=== PATIENT | male | born 1990 | race Two or more races ===

== ENCOUNTER 2024-10-10 16:53 | Emergency (ER) | payer MEDICAID, SELFPAY ==
[2024-10-10 16:54] VITALS: BMI 27.0
--- NOTE | 2024-10-10 17:03 | EKG_ITS ---
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
[2024-10-10 17:06] VITALS: BP 140/86; PULSE 122; RESP 18; TEMP 36.6; O2SAT 98
--- NOTE | 2024-10-10 17:22 | XR_ITS ---
Examination: PA lateral chest 2 views TECHNIQUE: Upright PA lateral chest 2 views Date and time: October 10, 2024 1839 hours INDICATIONS: Chest pain today. FINDINGS: Normal heart size. Lungs are clear. The osseous structures are intact IMPRESSION: No active disease
--- NOTE | 2024-10-10 17:23 | PD.EDRME ---
Rapid Medical Screening Exam RME Arrival date/time: 10/10/24 16:53 34-year-old male who presents to the emergency department today complaints of nausea vomiting and anxiety patient reports that he has been drinking since Wednesday patient reports drinking 7 tall cans today Chief Complaint: Alcohol Time Seen by Provider: 10/10/24 17:20 Vital signs: Vital Signs Temperature 97.9 F 10/10/24 17:06 Pulse Rate 122 H 10/10/24 17:06 Respiratory Rate 18 10/10/24 17:06 Blood Pressure 140/86 H 10/10/24 17:06 Pulse Oximetry (%) 98 10/10/24 17:06 Oxygen Delivery Method Room Air 10/10/24 17:06
[2024-10-10 17:58] LABS: Basophils # (Auto) 0.1 Thou/mm3 (0.0-0.2); Basophils % (Auto) 1 % (0-2.5); Eosinophils % (Auto) 0 % (0-10); Hematocrit 48.6 % (41.0-53.0); Hemoglobin 17.8 g/dL (13.5-16.0); Immature Granulocytes % (Auto) 0 % (0-0); Immature Granulocytes Auto 0.04 Thou/mm3 (0.00-0.00); Lymphocytes # (Auto) 2.8 Thou/mm3 (1.0-4.8); Lymphocytes % (Auto) 25 % (10-50); Mean Corpuscular HGB Conc 36.6 g/dl (31.0-37.0); Mean Corpuscular Hemoglobin 29.1 pg (25.0-35.0); Mean Corpuscular Volume 79 fL (80-100); Monocytes # (Auto) 0.7 Thou/mm3 (0.0-0.8); Monocytes % (Auto) 7 % (0-12); Neutrophils # (Auto) 7.8 Thou/mm3 (1.8-7.7); Neutrophils % (Auto) 68 % (37-80); Nucleated Red Blood Cell % 0 /100 WBC (0); Platelet Count 314 Thou/mm3 (140-440); RDW Standard Deviation 37.9 fL (35.1-43.9); Red Blood Count 6.12 Miln/mm3 (4.50-5.90); White Blood Count 11.5 Thou/mm3 (3.8-10.6)
[2024-10-10] MEDS: SODIUM CHLORIDE 0.9% 1000 ML 1,000 ML 999 ML IV ×2 (18:17→19:30)
--- NOTE | 2024-10-10 18:25 | EDNOTE_ITS ---
ED Alcohol RME/HPI General Chief Complaint: Alcohol Stated Complaint: NAUSEA, VOMITING, FEELS ANXIOUS Time Seen by Provider: 10/10/24 17:20 Source: patient Arrival date/time: 10/10/24 16:53 34-year-old male with no known medical history presents to the emergency room with a chief complaint of nausea, vomiting, anxiety x 4 days. at bedside states the patient has been drinking for the last 4 days. Mode of arrival: ambulatory Limitations: no limitations RME / HPI RME / HPI narrative: 10/10/24 16:53 34-year-old male who presents to the emergency department today complaints of nausea vomiting and anxiety patient reports that he has been drinking since Wednesday patient reports drinking 7 tall cans today Related Data Allergies Allergy/AdvReac Type Severity Reaction Status Date / Time No Known Allergies Allergy Verified 10/10/24 16:59 Review of Systems Review of Systems Systems Reviewed: All systems reviewed, normal except as documented Constitutional Constitutional: Reports system reviewed and no additional complaints, except as documented, Denies fatigue, Denies fever(s), Denies headache(s) and Denies weakness Eyes Eyes: Reports system reviewed and no additional complaints, except as documented, Denies blurry vision and Denies change in vision ENT Ears, Nose, Mouth, and Throat: Reports system reviewed and no additional complaints, except as documented, Denies otalgia, Denies headache(s), Denies nasal congestion, Denies throat swelling and Denies vertigo Cardiovascular Cardiovascular: Reports system reviewed and no additional complaints, except as documented, Denies chest pain, Denies dyspnea and Denies dyspnea on exertion Respiratory Respiratory: Reports system reviewed and no additional complaints, except as documented, Denies chest congestion, Denies cough, Denies dyspnea, Denies dyspnea on exertion and Denies wheezing Gastrointestinal Gastrointestinal: Reports system reviewed and no additional complaints, except as documented, Reports abdominal pain, Reports cramping, Reports nausea and Reports vomiting Genitourinary Genitourinary: Reports system reviewed and no additional complaints, except as documented, Denies dysuria and Denies hematuria Musculoskeletal Musculoskeletal: Reports system reviewed and no additional complaints, except as documented and Denies back pain Integumentary/Breasts Skin/Breast: Reports system reviewed and no additional complaints, except as documented and Denies wounds Neurologic Neurologic: Reports system reviewed and no additional complaints, except as docu mented, Denies confusion, Denies headache(s), Denies lack of coordination, Denies vertigo and Denies weakness Psychiatric Psychiatric: Reports system reviewed and no additional complaints, except as documented, Denies anxiety, Denies confusion, Denies depression, Denies paranoia, Denies suicidal ideation and Denies tactile hallucinations Endocrine Endocrine: Reports system reviewed and no additional complaints, except as documented and Denies fatigue Hematologic/Lymphatic Hematologic/Lymphatic: Reports system reviewed and no additional complaints, except as documented and Denies lymphadenopathy Allergic/Immunologic Allergic/Immunologic: Reports system reviewed and no additional complaints, except as documented, Denies throat swelling, Denies urticaria and Denies wheezing Past Medical History Past Medical History NEUROLOGIC: Negative Cerebrovascular Accident or Alzheimer's Disease CARDIAC: Negative Myocardial Infarction, Angina or Congestive Heart Failure RESPIRATORY: Negative Chronic Obstructive Pulmonary Disease (COPD) or Emphysema GASTROINTESTINAL: Negative Liver Cancer or Pancreatic Cancer GENITOURINARY: Negative Renal Disease MUSCULOSKELETAL: Negative Muscular Dystrophy or Bone Cancer ENT: Negative Cataracts ENDOCRINE: Negative Endocrine Disorders, Diabetes Mellitus Type 1 or Diabetes Mellitus Type 2 PSYCHO/SOCIAL: Negative Psychiatric Problems OTHER HISTORY: Negative Down Syndrome or Developmental Delay Social History SMOKING STATUS: Never smoker ED Exam General Limitations: Present no limitations General appearance: Present alert and in no apparent distress Head Head exam: Present atraumatic Eye Eye exam: Present normal appearance, PERRL and EOMI ENT ENT exam: Present normal exam, normal oropharynx and mucous membranes moist Neck Neck exam: Present normal inspection, full ROM and trachea midline Chest Chest inspection: Present normal inspection and symmetric chest wall rise Respiratory Respiratory exam: Present normal lung sounds bilaterally Cardiovascular Cardiovascular exam: Present regular rate, normal rhythm and normal heart sounds Abdominal Exam Abdominal exam: Present soft, tenderness and normal bowel sounds; Absent distention, guarding, rebound, rigidity, Foreman's sign or tenderness at McBurney's Point Abdominal tenderness: Present epigastrium and mild Extremities Exam Extremities exam: Present normal inspection and full ROM Back Exam Back exam: Present normal inspection and full ROM Neurological Exam Neurological exam: Present alert, oriented X3 and CN II-XII intact Psychiatric Psychiatric exam: Present normal affect and normal mood Skin Skin exam: Present warm, dry, intact and normal color Course Quality Measures none Orders Category Date Time Status EKG (ED ONLY) *Do not use* NOW Care 10/10/24 17:03 Completed Insert IV NOW Care 10/10/24 17:22 Completed Neuro Check Q30MIN Care 10/11/24 03:[address] head/brain wo con Stat Exams 10/10/24 22:11 Completed EKG (ED Only) Stat Exams 10/10/24 17:03 Draft US gall bladder Stat Exams 10/10/24 19:16 Completed XR chest 2V Stat Exams 10/10/24 17:22 Completed Acetaminophen Stat Lab 10/11/24 04:25 Completed Alcohol, Blood Medical Stat Lab 10/10/24 17:38 Completed CBC Stat Lab 10/10/24 17:38 Completed Comprehensive Metabolic Panel Stat Lab 10/10/24 17:38 Completed Drug Screen,Urine Stat Lab 10/10/24 17:29 Completed Fresh Frozen Plasma Stat Lab 10/10/24 22:29 Results HSV1 IgG Type Specific Ab* Stat Lab 10/11/24 Received HSV2 IgG Type Specific Ab* Stat Lab 10/11/24 Received Hepatitis Acute Panel Stat Lab 10/10/24 17:38 Completed INR [Prothrombin Time with INR] Stat Lab 10/11/24 04:25 Completed Lipase Stat Lab 10/10/24 17:38 Completed Magnesium Stat Lab 10/10/24 17:38 Completed PT [Prothrombin Time with INR] Stat Lab 10/10/24 20:33 Completed PTT [Partial Thromboplastin Time] Stat Lab 10/10/24 20:33 Completed Troponin I Stat Lab 10/10/24 17:38 Completed Type and Screen Stat Lab 10/10/24 22:29 Results ALT Order Med 10/11/24 06:00 Discontinued Acyclovir Inj [Zovirax Inj] 800 mg Med 10/11/24 06:00 Discontinued Sodium Chloride 0.9% [Ns] 100 ml IV Q8HR Acyclovir Inj [Zovirax Inj] 800 mg Med 10/11/24 06:00 Discontinued Sodium Chloride 0.9% [Ns] 100 ml IV X1 Folic Acid Inj Med 10/10/24 19:16 Discontinued 1 mg IVP X1 ONE LORazepam [Ativan Inj] Med 10/10/24 19:41 Discontinued 1 mg IVP X1 ONE Morphine Inj Med 10/11/24 07:41 Discontinued 4 mg IVP X1 ONE Phytonadione Inj [Vitamin K Inj] Med 10/10/24 22:11 Discontinued 10 mg SC X1 ONE Sodium Chloride 0.9% 1000 ml [Ns] 1,000 ml Med 10/10/24 17:22 Discontinued IV 999 mls/hr Sodium Chloride 0.9% 1000 ml [Ns] 1,000 ml Med 10/10/24 19:17 Discontinued IV 999 mls/hr Thiamine Inj [Vitamin B-1 Inj] Med 10/10/24 19:16 Discontinued 100 mg IVP X1 ONE cefTRIAXone/D5w 1gm IV premix [Rocephin/D5w 1gm IV Med 10/11/24 03:46 Discontinued premix] 1 gm in 50 ml IV X1 Vital Signs Vital signs: Vital Signs Temperature 97.9 F 10/10/24 17:06 Pulse Rate 122 H 10/10/24 17:06 Respiratory Rate 18 10/10/24 17:06 Blood Pressure 140/86 H 10/10/24 17:06 Pulse Oximetry (%) 98 10/10/24 17:06 Oxygen Delivery Method Room Air 10/10/24 17:06 O2 saturation 90% within normal limits Discharge Plan Plan Patient Disposition: [facility] Facility Pt Being Transferred to: [place] Service Needed for Transfer: Critical Care Discharge Disposition comment: Acute Hepatic Failure Patient condition on transfer: Stable Prescriptions/Referrals Referrals: No Primary/Family,Physician [Primary Care Provider] - In 1 week Problem List Clinical Impression: Alcoholic intoxication Patient/Caregiver Discharge Instructions Print Language: Kittitian Stand Alone Forms: [employer] Award Info., Patient Portal Info Letter Alcohol MDM Narrative MDM Narrative: 34-year-old male with no known medical history presents to the emergency room with a chief complaint of nausea, vomiting, anxiety x 4 days. at bedside states the patient has been drinking for the last 4 days. Patient is hemodynamically stable no apparent distress Physical examination shows some 4 out of 10 epigastric abdominal tenderness with palpation. Patient states his biggest complaint is nausea vomiting. According to the the patient has been sober and has not been drinking in a year and a half. 10 days ago the states the patient got depressed and began drinking. The patient has been drinking nonstop for the last 10 days. CBC CMP were completed and the patient's liver enzymes are elevated. Patient's AST is 2296. Patient's ALT is 2390. PTT and PT INR were ordered but the laboratory called back and said that their machine was unable to result his blood. 2 samples at 2 different sites were used. The laborer/key man states that his blood work was ran through his machine multiple times and has not resulted. dynamics ax technical architect states that the Asterix means that the levels are either too high or too low. electrical equipment technician states the blood was not clotting. I consulted her principal strategist Dr. Staley. Dr. Staley recommendations were to give vitamin K 10 mg subcu and a unit of fresh frozen plasma and to try to transfer the patient for acute hepatic failure due to PT and INR [id number] due to his alcoholism. This patient was then signed out to my attending physician Dr. Quiles who will complete the patient's workup prior to transfer the patient. Patient data External records reviewed:: [facility] previous records Clinical information provided by:: patient Social determinants that could affect healthcare access:: none Patient has the following chronic illnesses:: No chronic illness How is presenting disease/condition affected by chronic disease/condition?: no chronic disease Evaluation data The following diagnostics were reviewed and interpreted by me:: lab results and radiology exam(s) Lab and/or radiology exams considered but not ordered:: Labs and radiology exams considered and ordered Interpretation Summary: CT head and brain- Ultrasound gallbladder-negative for cholecystitis or cholelithiasis Medications / Prescriptions Medications or Prescriptions considered but not ordered:: Medication given Medication administrations:: Medication Administration History Discontinued Medications Folic Acid (Folic Acid Inj 1 Mg/0.2 Ml) 1 mg IVP X1 ONE Stop: 10/10/24 19:17 Last Admin: 10/10/24 19:30 Dose: 1 mg Documented By: SHMUEL Sodium Chloride (Ns) 1,000 mls @ 999 mls/hr IV .Q1H1M ONE Stop: 10/10/24 18:22 Last Infusion: 10/10/24 19:10 Dose: Infused Documented By: Admin: 10/10/24 18:17 Dose: 999 mls/hr Documented By: KAMALJIT Sodium Chloride (Ns) 1,000 mls @ 999 mls/hr IV .Q1H1M ONE Stop: 10/10/24 20:17 Last Infusion: 10/10/24 21:13 Dose: Infused Documented By: Admin: 10/10/24 19:30 Dose: 999 mls/hr Documented By: DB Ceftriaxone Sodium/Dextrose (Rocephin/D5w 1gm Iv Premix) 1 gm in 50 mls @ 100 mls/hr IV X1 ONE Stop: 10/11/24 04:15 Last Infusion: 10/11/24 05:07 Dose: Infused Documented By: Admin: 10/11/24 04:37 Dose: 100 mls/hr Documented By: BABAK Acyclovir Sodium 800 mg/ (Sodium Chloride) 116 mls @ 99.88 mls/hr IV Q8HR AISHA Stop: 10/18/24 05:59 Acyclovir Sodium 800 mg/ (Sodium Chloride) 116 mls @ 99.88 mls/hr IV X1 ONE Stop: 10/11/24 07:09 Last Infusion: 10/11/24 06:35 Dose: Infused Documented By: Admin: 10/11/24 05:21 Dose: 99.88 mls/hr Documented By: ROSS Acetylcysteine 12,000 mg/ (Dextrose) 260 mls @ 260 mls/hr IV .BY DURATION AISHA Stop: 11/10/24 05:59 Last Infusion: 10/11/24 09:08 Dose: Infused Documented By: Admin: 10/11/24 08:04 Dose: 260 mls/hr Documented By: NAOMY Acetylcysteine 4,000 mg/ (Dextrose) 520 mls @ 130 mls/hr IV .BY DURATION AISHA Stop: 11/10/24 05:59 Last Admin: 10/11/24 09:21 Dose: 130 mls/hr Documented By: NAOMY Acetylcysteine 8,000 mg/ (Dextrose) 1,040 mls @ 65 mls/hr IV .BY DURATION [facility] Stop: 11/10/24 05:59 Lorazepam (Lorazepam 2 Mg/Ml Vial) 1 mg IVP X1 ONE Stop: 10/10/24 19:42 Last Admin: 10/10/24 19:48 Dose: 1 mg Documented By: SHMUEL Morphine Sulfate (Morphine Sulf Inj 10 Mg/Ml Vial) 4 mg IVP X1 ONE Stop: 10/11/24 07:42 Last Admin: 10/11/24 08:04 Dose: 4 mg Documented By: NAOMY Phytonadione (Phytonadione Inj 10 Mg/Ml Amp) 10 mg SC X1 ONE Stop: 10/10/24 22:12 Last Admin: 10/10/24 22:19 Dose: 10 mg Documented By: SHMUEL Thiamine HCl (Thiamine Inj 100 Mg/Ml Vial 2 Ml) 100 mg IVP X1 ONE Stop: 10/10/24 19:17 Last Admin: 10/10/24 19:31 Dose: 100 mg Documented By: DB Medication given Consultations Consultation(s) initiated? (list below): Yes Consultation #1 (Physician, Specialty, Details): Dr. Staley principal strategist on-call Time: 22:00 Diagnosis Differential diagnosis alcohol: alcohol withdrawal delirium, alcohol intoxication, alcohol ketoacidosis, alcohol withdrawal syndrome, alcohol withdrawal seizure and other (Acute alcoholic hepatic failure) Most likely diagnosis given after review of the tests above:: Acute alcoholic hepatic failure Admission Indicated Admission indicated?: not indicated Admission Request Was there a request for admission?: No Disposition Plan Disposition Plan: Transfer
[2024-10-10 18:37] LABS: Amphetamine/Methamp Scrn,U Negative (Negative); Barbiturate Screen,Urine Negative (Negative); Benzodiazepines Screen,Urine Negative (Negative); Benzoylecgonine Screen, Ur Negative (Negative); Fentanyl Screen,Urine Negative (Negative); Opiate Screen,Urine Negative (Negative); THC Screen,Urine Negative (Negative)
[2024-10-10 18:42] LABS: Alanine Aminotransferase 2390 U/L (10-49); Albumin, Serum 3.6 gm/dL (3.5-5.0); Albumin/Globulin Ratio 1.2 (1.2-2.2); Alcohol, Blood Medical 350.6 mg/dL (0-10.0); Alkaline Phosphatase 222 U/L (46-116); Anion Gap 14 (7-16); Aspartate Amino Transferase 2296 U/L (0-34); BUN/Creatinine Ratio 13 Ratio (12-20); Blood Urea Nitrogen 10 mg/dL (9-23); Calcium 7.5 mg/dL (8.3-10.6); Calcium (Corrected) 7.8 mg/dL (8.5-10.1); Carbon Dioxide 23.6 mMol/L (20.0-31.0); Chloride 101 mMol/L (98-107); Creatinine (Component) 0.8 mg/dL (0.6-1.3); Estimated Creatinine Clearance 125.9 mL/min (>60); Globulin 2.9 gm/dL (2.3-3.5); Glucose 139 mg/dL (74-106); Lipase 62 U/L (12-53); Osmolality,Calculated 278 (275-295); Potassium 3.4 mMol/L (3.4-5.1); Sodium 139 mMol/L (136-145); Total Protein 6.5 gm/dL (5.7-8.2); Troponin I < 0.020 ng/mL (0.0-0.045); eGFR > 60 See Note
--- NOTE | 2024-10-10 19:16 | XR_ITS ---
Examination: Abdomen sonogram, Limited Date and time of exam: October 10, 2024 2056 hours INDICATIONS: Onset right ovary abdominal pain and vomiting today Technique: Real-time ramos scale transabdominal sonographic images of the upper abdomen obtained. Findings: Negative for gallstones 0.41 cm no definite edema Common bile duct 5 cm Pancreatic head 2.4 cm Liver 15.2 cm fatty infiltration Normal about the reported [place] [employer] IVC. IMPRESSION: Negative for cholelithiasis, negative for cholecystitis Fatty liver
[2024-10-10] MEDS: FOLIC ACID INJ 1 MG/0.2 ML IVP (19:30)
[2024-10-10] MEDS: THIAMINE INJ 100 MG/ML VIAL 2 ML IVP (19:31)
[2024-10-10 19:35] VITALS: BP 138/94; PULSE 80; RESP 16; TEMP 36.7; O2SAT 98
[2024-10-10] MEDS: LORazepam 2 MG/ML VIAL 1 MG IVP (19:48)
[2024-10-10 19:54] LABS: Magnesium 2.1 mg/dL (1.6-2.6)
[2024-10-10 20:34] LABS: Hepatitis A Antibody IgM Non Reactive (Non React); Hepatitis B Core Antibody IgM Non Reactive (Non React); Hepatitis B Surface Antigen Non Reactive (Non React); Hepatitis C Antibody Non Reactive (Non React)
[2024-10-10 22:00] VITALS: BP 136/95; PULSE 89; RESP 16; O2SAT 98
--- NOTE | 2024-10-10 22:11 | XR_ITS ---
Examination: CT brain head without contrast. 2-D sagittal coronal reconstructions Date and time of exam:October 10, 2024 11:06 PM INDICATIONS: Altered mental status today CTDI: vol (mGy):49.8 DLP: (mGycm):949 Technique: Multiple CT axial sections of the brain have been obtained, 5 mm slice thickness. Contrast has not been administered. 2-D sagittal, coronal reconstructions have been obtained Low dose protocols were performed. One or more of the following dose reduction techniques were used; automated exposure control, adjustment of the mA and/or KV according to patient size, use of iterative reconstruction technique. Findings: No significant ventricular enlargement. Intra-axial or extra-axial hemorrhage density is not seen. No mass effect or midline shift Basal cisterns are not remarkable. Fourth ventricle is midline. Cranial vault intact. Impression: Negative for acute hemorrhage, mass effect or midline shift
[2024-10-10] MEDS: PHYTONADIONE INJ 10 MG/ML AMP SC (22:19)
--- NOTE | 2024-10-10 22:42 | PC.NURSE ---
FAXED INFORMATION TO [facility].
--- NOTE | 2024-10-10 22:55 | PD.EDADDENDU ---
Emergency Room Addendum <Tosin Trinh - Last Filed: 10/11/24 05:32> Addendum Narrative: 2300: Care assumed from Samson Almeida NP (emergency provider). Past medical, surgical, social and family history reviewed. Vitals and home medications reviewed. Results and treatment plan discussed. They will assume the care of the patient at this time and will follow the patient, pending transfer. The following addendum documentation note is intended to reflect any pending information, findings, or radiology results not included in the patient?s initial chart by the previous shift scribe. 2253: Maryjane Snow called back and declined transfer due to not having hepatobilliary specialist. 2359: [facility] called. Patient would go to Dr. Graham at [facility]. Dr. Graham normally takes these cases but is not security sales consultant and they do not call him at night. They will present patient to him in the morning to see if he accepts patient for transfer. 0227: Spoke with [facility] staff and made aware of the patient?s HPI, PMHx, lab and/or radiology results. Treatment plan was discussed. Will return call. 0338: Spoke with Dr. Contreras, Hepatobilliary Specialist of [facility]. Dr. Sabillon accepts patient for transfer and evaluation. Advises we start general antibiotics, N-acetylcysteine, and acute 30-neuro checks. 0401: Re-evaluated patient and discussed the significance and necessity for transfer to [facility] for higher-level of care. Patient agrees to transfer. 0422: Dr. Hatch, guide winder at [facility], requested we arrange flight travel as soon as possible. Also advised we begin Acyclovir for potential HSV Hepatitis. 0600: Care assumed by Dr. Glasgow (emergency physician). Past medical, surgical, social and family history reviewed. Vitals and home medications reviewed. Results and treatment plan discussed. They will assume the care of the patient at this time and will follow the patient, pending transfer to [facility]. <Mark Quiles MD - Last Filed: 10/11/24 05:59> Addendum Narrative: 2300: Care assumed from Samson Almeida NP (emergency provider). Past medical, surgical, social and family history reviewed. Vitals and home medications reviewed. Results and treatment plan discussed. They will assume the care of the patient at this time and will follow the patient, pending transfer. The following addendum documentation note is intended to reflect any pending information, findings, or radiology results not included in the patient?s initial chart by the previous shift scribe. 2253: Maryjane Snow called back and declined transfer due to not having hepatobilliary specialist. 2359: [facility] called. Patient would go to Dr. Graham at [facility]. Dr. Graham normally takes these cases but is not security sales consultant and they do not call him at night. They will present patient to him in the morning to see if he accepts patient for transfer. 0227: Spoke with [facility] staff and made aware of the patient?s HPI, PMHx, lab and/or radiology results. Treatment plan was discussed. Will return call. 0338: Spoke with Dr. Contreras, Hepatobilliary Specialist of [facility]. Dr. Sabillon accepts patient for transfer and evaluation. Advises we start general antibiotics, N-acetylcysteine, and Q 30 minute-neuro checks. 0401: Re-evaluated patient and discussed the significance and necessity for transfer to [facility] for higher-level of care. Patient agrees to transfer. 0422: Dr. Hatch, guide winder at [facility], requested we arrange flight travel as soon as possible. Also advised we begin Acyclovir for potential HSV Hepatitis and HSV antibodies. She also advised that the patient should be transferred as quickly as possible. She states that the patient has a short window during which he can be evaluated for acute expedited liver transplant and the entire team is encouraging air transport to expedite transfer. 0559: Patient's INR is now 1.6. 0600: Care assumed by Dr. Glasgow (emergency physician). Past medical, surgical, social and family history reviewed. Vitals and home medications reviewed. Results and treatment plan discussed. They will assume the care of the patient at this time and will follow the patient, pending transportation to [facility]. <Estrella Terrell - Last Filed: 10/12/24 03:46> Addendum Narrative: 2300: Care assumed from Samson Almeida NP (emergency provider). Past medical, surgical, social and family history reviewed. Vitals and home medications reviewed. Results and treatment plan discussed. They will assume the care of the patient at this time and will follow the patient, pending transfer. Please refer to the emergency department record for history and examination from initial visit. 2353: Maryjane Snow called back and declined transfer due to not having hepatobilliary specialist. 2359: [facility] called. Patient would go to Dr. Graham at [facility]. Dr. Graham normally takes these cases but is not security sales consultant and they do not call him at night. They will present patient to him in the morning to see if he accepts patient for transfer. 0227: Spoke with [facility] staff and made aware of the patient?s HPI, PMHx, lab and/or radiology results. Treatment plan was discussed. Awaiting callback. 0338: Spoke with Dr. Contreras, Hepatobilliary Specialist of [facility]. Dr. Sabillon accepts patient for transfer and evaluation. Advises we start general antibiotics, N-acetylcysteine, and Q 30 minute-neuro checks. 0401: Re-evaluated patient and discussed the significance and necessity for transfer to [facility] for higher-level of care. Patient agrees to transfer. 0422: Dr. Hatch, guide winder at [facility], requested we arrange flight travel as soon as possible. Also advised we begin Acyclovir for potential HSV Hepatitis and HSV antibodies. She also advised that the patient should be transferred as quickly as possible. She states that the patient has a short window during which he can be evaluated for acute expedited liver transplant and the entire team is encouraging air transport to expedite transfer. 0559: Patient's INR is now 1.6. 0600: Care assumed by Dr. Glasgow (emergency physician). Past medical, surgical, social and family history reviewed. Vitals and home medications reviewed. Results and treatment plan discussed. They will assume the care of the patient at this time and will follow the patient, pending transportation to [facility].
--- NOTE | 2024-10-10 22:57 | PC.NURSE ---
[facility]ARG[facility] CALLED BACK, THEY DON'T HAVE HEPATO BILIARY SPECIALIST.
--- NOTE | 2024-10-10 23:08 | PC.NURSE ---
CALLED [facility], CANT TAKE PT AT THIS TIIME DUE TO CAPCITY AND THEY ONLY DO HEPATO BILIARY AT DAY.
--- NOTE | 2024-10-10 23:32 | PC.NURSE ---
CALLED [facility], NO HEPATO BILIARY SPECIALIST.
[2024-10-11] VITALS (8 sets, daily range): BP systolic 129–159; BP diastolic 86–110; PULSE 67–90; RESP 16–18; TEMP 36.6–37.2; O2SAT 95–97
--- NOTE | 2024-10-11 | PC.NURSE ---
FAXED INFORMATION ,CALLED [facility], TRANSFER NURSE TALKED TO DR. FRENCH, THEY WILL PRESENT CASE TO MD IN AM.
--- NOTE | 2024-10-11 00:09 | PC.NURSE ---
CALLED [facility], THEY DON'T HAVE HEPATO BILIARY SPECIALIST.
[2024-10-11 00:34] LABS: Prothrombin Time 39.5 Seconds (9.0-12.2)
--- NOTE | 2024-10-11 00:37 | PC.NURSE ---
CALLED [facility] , NO HEPATO BILIARY SPECIALIST.
--- NOTE | 2024-10-11 02:13 | PC.NURSE ---
Pt has been educated with a hired hand to stay in bed for his saftey with family member at bedside. Pt 2 min later found up and out of bed with monitor torn off. pt is A&O x 4
--- NOTE | 2024-10-11 02:18 | PC.NURSE ---
CALLED [facility], NO HEPATO BILIARY SPECIALIST.
--- NOTE | 2024-10-11 02:23 | PC.NURSE ---
CALLED [facility], AT THIS TIME DENIED DUE TO CAPACITY.
--- NOTE | 2024-10-11 03:33 | PC.NURSE ---
patient was seen coming out of the bathroom and was educated once again to stay in bed and call for help
[2024-10-11] MEDS: cefTRIAXone/D5w 1gm IV premix 1 GM/50 ML BAG IV (04:37)
[2024-10-11] MEDS: ACYCLOVIR INJ 800 MG in SODIUM CHLORIDE 0.9% 100 ML 99.88 MG IV (05:21)
[2024-10-11 05:24] LABS: INR 1.6 (0.9-1.3); Prothrombin Time 16.5 Seconds (9.0-12.2)
[2024-10-11 05:37] LABS: Acetaminophen < 2.0 mcg/mL (10.0-20.0)
--- NOTE | 2024-10-11 06:42 | PD.EDADDENDU ---
Emergency Room Addendum Addendum Narrative: 0600: Care assumed from Dr. Quiles, the previous shift emergency physician. Past medical, surgical, social and family history reviewed. Vitals and home medications reviewed. I will assume the care of the patient at this time, pending transfer to [facility]. Please refer to the emergency department record for history and examination from initial visit.?The following addendum documentation note is intended to reflect any pending information, findings, or radiology results not included in the patient?s initial chart. 0930: [facility] here to transfer patient.
--- NOTE | 2024-10-11 06:44 | PC.NURSE ---
N/A from in hospital pharmacy for medication not showing in pyxis
--- NOTE | 2024-10-11 07:42 | PC.NURSE ---
Patient states stomach pain 12/17. Informed ER provider and received verbal order for 4mg morphine IV.
[2024-10-11] MEDS: DEXTROSE 5% IV ×2 (08:04→09:21)
[2024-10-11] MEDS: ACETYLCYSTEINE IV ×2 (08:04→09:21)
[2024-10-11] MEDS: WATER ACETYLCYSTEINE IV ×2 (08:04→09:21)
[2024-10-11] MEDS: MORPHINE SULF INJ 10 MG/ML VIAL 4 MG IVP (08:04)
--- NOTE | 2024-10-11 09:25 | PC.NURSE ---
[facility] IN ER TO TRUCK [facility] PATIENT FOR TRANSFER TO [place].
--- NOTE | 2024-10-11 09:39 | PC.NURSE ---
CALLED [facility] AND UPDATED PATIENT STATUS WELL ARRIVAL TIME.
[2024-10-17 06:38] LABS: HSV2 IgG Type Specific Ab* <0.90 INDEX
== END 2024-10-11 09:30 | disposition short-term general hospital (02) ==
PROVIDERS: Nurse Practitioner Family; Nurse Practitioner Primary Care; Emergency Provider Emergency Medicine
DX: F10.129 Alcohol abuse with intoxication, unspecified (principal); R07.9 Chest pain, unspecified; R10.9 Unspecified abdominal pain; R41.82 Altered mental status, unspecified; Y90.8 Blood alcohol level of 240 mg/100 ml or more; Z75.1 Person awaiting admission to adequate facility elsewhere
CPT/HCPCS: 36415; 36430; 70450; 71046; 76705; 80053; 80074; 80307; 80320; 80329; 83690; 83735; 84484; 85025; 85610; 85730; 86695; 86696; 86850; 86900; 86901; 86927; 93005; 96361; 96365; 96367; 96374; 96375; 99285; J0132; J0133; J0696; J2060; J2270; J3411; J3430; J3490; J7030; J7050; J7060; P9060; G0480